=== PATIENT | male | born 2000 | race Caucasian/White ===

== ENCOUNTER → 2020-02-23 | Outpatient (CLI) | payer BC ==
[~2020-02-23] MED LIST: CATHETER FLUSH 10 ML SYR IV PRN; LORA10CA PO
--- NOTE | 2020-02-23 13:51 | Diagnostic Imaging Report ---
INDICATION: Epigastric pain. Patient was administered 5.0 mCi technetium 99m Choletec intravenously and imaging over the abdomen was performed. Ensure was ingested at 45 minutes. Patient denied abdominal discomfort. There is homogeneous uptake of activity by the liver with prompt excretion of activity into the gallbladder and common duct. There is normal passage of activity into the small bowel. Gallbladder ejection fraction is normal at 48%. IMPRESSION: Normal HIDA scan and gallbladder ejection fraction. Dictated by: Dictated on workstation # [id number]
== END ==
LOC: CARD 10:00
PROVIDERS: ATTEND Surgery
DX: R10.816 Epigastric abdominal tenderness (principal); R10.13 Epigastric pain
CPT/HCPCS: 78227; A9537

== ENCOUNTER 2020-02-27 05:34 | Outpatient (RCR) | payer BC ==
[~2020-02-27] VITALS: Ht 177 cm; Wt 78.1 kg
[~2020-02-27 05:34] MED LIST changes: -CATHETER FLUSH 10 ML SYR IV PRN
== END 2020-02-27 09:21 | disposition home or self-care (01) ==
LOC: PREOP 05:34
PROVIDERS: ATTEND Surgery
DX: Z01.812 Encounter for preprocedural laboratory examination (principal); K21.9 Gastro-esophageal reflux disease without esophagitis; R19.4 Change in bowel habit; Z20.828 Contact with and (suspected) exposure to other viral communicable diseases
CPT/HCPCS: 87635

== ENCOUNTER 2020-03-01 11:27 | Day surgery (SDC) | payer BC ==
[~2020-03-01] VITALS: Ht 177 cm; Wt 78.1 kg
[2020-03-01] MEDS ORDERED: LACTATED RINGERS 1,000 ML IV ONE (11:28)
[2020-03-01] MEDS ORDERED: LACTATED RINGERS 1,000 ML IV STA (11:32)
[2020-03-01 11:35] VITALS: BP 126/97
[2020-03-01] MEDS ORDERED: HURRICAINE EXT TUBE (BENZOCAINE) XX PRN (11:45)
[2020-03-01] MEDS ORDERED: PROPOFOL INJECTION 50 ML IV ONE (11:51)
[2020-03-01] MEDS ORDERED: MIDAZOLAM 2 MG/2 ML (VERSED) VIAL ONE (11:52)
--- NOTE | 2020-03-01 12:49 | Progress Note-Pre Operative ---
Pre-Operative Progress Note H&P Reviewed The H&P was reviewed, patient examined and no changes noted. Date Seen by Provider: Mar 01, 2020 Time Seen by Provider: 12:49 Date H&P Reviewed: Mar 01, 2020 Time H&P Reviewed: 12:49 Pre-Operative Diagnosis: gerd, change in bowel habits ITA RODRIGUEZ DO Mar 01, 2020 12:49
[2020-03-01 13:20] VITALS: BP 115/55
[2020-03-01 13:25] VITALS: BP 113/56
--- NOTE | 2020-03-01 13:26 | Progress Note-Post Operative ---
Post-Operative Progess Note Surgeon (s)/Virtual Customer Assistant (s) Surgeon ITA RODRIGUEZ DO Virtual Customer Assistant: na Pre-Operative Diagnosis gerd, change in bowel habits Post-Operative Diagnosis gastritis, mucosal change of ileum Procedure & Operative Findings Date of Procedure 03/01/20 Procedure Performed/Findings egd c biopsies, colonoscopy c biopsy of ileum Anesthesia Type per CERTIFIED ORTHOTIST PRACTICE MANAGER Estimated Blood Loss Estimated blood loss (mL): none Specimens/Packing Specimens Removed body of stomach x3, antrum, ge junction, ileum ITA RODRIGUEZ DO Mar 01, 2020 13:26
[2020-03-01] MEDS ORDERED: SUCR1TAB36 PO (13:27)
[2020-03-01] MEDS ORDERED: PANT40TA2 PO (13:27)
--- NOTE | 2020-03-01 13:27 | Discharge Inst-Simple/Standard ---
Discharge Inst-Standard Discharge Medications New, Converted or Re-Newed RX: Transmitted to Pharmacy Patient Instructions/Follow Up Plan of Care/Instructions/FU: 3 weeks Abigail Activity as Tolerated: Yes Discharge Diet: Regular Diet (gastritis diet) ITA RODRIGUEZ DO Mar 01, 2020 13:27
[2020-03-01 13:30] VITALS: BP 115/60
[2020-03-01 13:35] VITALS: BP 115/60
[2020-03-01 13:57] VITALS: BP 115/60
--- NOTE | 2020-03-01 22:12 | OPERATIVE REPORT ---
DATE OF SERVICE: 03/01/2020 PREOPERATIVE DIAGNOSES: Gastroesophageal reflux disease, change in bowel habits. POSTOPERATIVE DIAGNOSES: Gastritis and ileal mucosal change. SURGEON: Ita Hayes DO ANESTHESIA: Per NON ACOUSTIC OPERATOR. ESTIMATED BLOOD LOSS: None. COMPLICATIONS: None. PROCEDURE PERFORMED: EGD with biopsies, colonoscopy with biopsy of the ileum. INDICATIONS: The patient is a 19-year-old male who has been having GERD symptoms and change in bowel habits. He understands risks and benefits of evaluation with EGD and colonoscopy. He understands and wishes to proceed. Consent was signed in the chart. DESCRIPTION OF PROCEDURE: The patient was taken to the endoscopy suite, placed in left lateral recumbent position. Timeout was performed. Scope was inserted in mouth, down the esophagus, stomach and into the duodenum without difficulty. There were no polyps, masses or ulcerations within the duodenum. Scope was slowly retracted back into the stomach, which had significant changes of gastritis throughout the majority of the stomach. Biopsies of the antrum and body were obtained. Scope was retroflexed noting no other pathology. Scope was returned to its normal position, slowly withdrawn to distal esophagus. Biopsy of the GE junction was obtained. No polyps, masses or ulcerations. Scope was slowly retracted back until completely removed noting no other pathology. Digital rectal exam was performed. There were no palpable polyps, masses or ulcerations. Scope was inserted in the rectum, advanced all the way to cecum with minimal difficulty. The ileocecal valve was intubated. The ileum distal portion had a slight mucosal change. Biopsy was obtained. Scope was retracted back into the colon. There were no polyps, masses or ulcerations within the cecum, ascending, transverse, descending and sigmoid colon. Once in the rectum, scope was retroflexed noting no other pathology. Scope was returned to its normal position, slowly withdrawn until completely removed. The patient tolerated procedure well without any complications, taken to recovery room in stable condition. RECOMMENDATIONS: The patient was started on Protonix and Carafate. We will follow up in the office in 3 weeks and follow up on pathology. Further recommendations pending biopsy results. Job ID: [id number] DocumentID: [id number] Dictated Date: 03/01/2020 13:30:19 [employer] Date: 03/01/2020 22:12:29 Dictated By: ITA HAYES DO
== END 2020-03-01 14:00 | disposition home or self-care (01) ==
LOC: ENDO 11:27
PROVIDERS: ATTEND Surgery
DX: K29.50 Unspecified chronic gastritis without bleeding (principal); R19.4 Change in bowel habit; K21.9 Gastro-esophageal reflux disease without esophagitis; K63.89 Other specified diseases of intestine; Z79.899 Other long term (current) drug therapy

== ENCOUNTER → 2021-04-24 | Outpatient (CLI) | payer BC ==
[~2021-04-24] MED LIST changes: +PANT40TA2 PO; +SUCR1TAB36 PO
--- NOTE | 2021-04-24 10:02 | Diagnostic Imaging Report ---
PROCEDURE: US Scrotum. TECHNIQUE: Multiple real-time grayscale images were obtained over the scrotum in various projections bilaterally. INDICATION: Left epididymal cyst. FINDINGS: Right testicle measures 5.1 x 2.4 x 3 cm. Left testicle measures 4.6 x 2.3 x 3.2 cm. There is a simple cyst in the head of the left epididymis measuring approximately 1 cm. Right epididymis appears normal. No evidence of hydroceles or varicoceles. IMPRESSION: Simple cyst within the head of the left epididymis measuring 1 cm. Dictated by: Dictated on workstation # [id number]
== END ==
LOC: RAD 09:00
PROVIDERS: ATTEND Urology
DX: N50.3 Cyst of epididymis (principal)
CPT/HCPCS: 76870

== ENCOUNTER → 2021-08-30 | Outpatient (CLI) | payer BC | LOC: LAB 11:07 | DX: J30.1 Allergic rhinitis due to pollen (principal) | CPT/HCPCS: 36415; 86003 ==